=== PATIENT | female | born 1970 | race Caucasian/White ===

== ENCOUNTER 2018-03-07 07:27 | Emergency (ER) | payer BC ==
[~2018-03-07] VITALS: Ht 160 cm; Wt 89.8 kg
--- NOTE | ~2018-03-07 | EKG ---
[place], [place] ELECTROCARDIOGRAM REPORT NAME: JONNA DIAZ UNIT #: [id number] ROOM: DOCTOR: EPIPHANY DRAFT REPORT BIRTHDATE: [birth year] [facility] Test Date: 2018-03-07 Test Time: 07:54:06 Pat Name: JONNA DIAZ Department: ed Room: 6 Gender: F Pmp: EKG.[place] : 1970 Requested By: MADISYN ARRIAGA Order Number: [id number] Reading MD: Yves Kilgore MD Measurements Intervals [place] Rate: 88 P: 41 CT: 152 QRS: 12 QRSD: 106 T: 46 QT: 369 QTc: 447 Interpretive Statements Sinus rhythm Probable left atrial enlargement RSR' in V1 or V2, right VCD or RVH Electronically Signed On 03-09-2018 18:47:40 PDT by Yves Kilgore MD CM:EKGRPT:ELECTROCARDIOGRAM REPORT [id number] MADISYN ORELLANA DRAFT REPORT MADISYN ARRIAGA MD
[2018-03-07] MEDS ORDERED: ALDACTONE25 M1 PO (07:37)
[2018-03-07] MEDS ORDERED: METOPROLOL SUC100 M1 PO (07:38)
[2018-03-07] MEDS ORDERED: LEVOTHYROXINE50 MCG PO (07:38)
[2018-03-07] MEDS ORDERED: HYDRALAZINE HYD50 MG PO (07:39)
[2018-03-07] MEDS ORDERED: GLUCOPHAGE500 M1 PO (07:39)
[2018-03-07] MEDS ORDERED: BIOTIN5000 MC1 SL (07:40)
[2018-03-07] MEDS ORDERED: SIMVASTATIN20 MG PO (07:40)
[2018-03-07] MEDS ORDERED: VITAMIN D5000 UNI1 PO (07:41)
[2018-03-07] MEDS ORDERED: DUOFER 28 MG TA28 MG PO (07:41)
[2018-03-07 07:56] LABS: BASO % 0.4 % (0.0-1.0); EOS # 0.1 10*3/uL (0.0-0.4); HEMATOCRIT 36.3 % (37.0-47.0); HEMOGLOBIN 11.2 g/dl (12.0-16.0); LYMPH # 4.5 10*3/uL (1.3-4.4); LYMPH % 42.7 % (27.0-41.0); MEAN CELL VOLUME 80.7 fl (81.0-99.0); MEAN CORPUSCULAR HGB 24.9 pg (27.0-31.0); MEAN CORPUSCULAR HGB CONC 30.9 g/dl (33.0-37.0); MEAN PLATELET VOLUME 9.5 fl (9.6-12.3); MONO # 0.6 10*3/uL (0.1-1.0); MONO % 5.5 % (3.0-9.0); NEUT # 5.3 10*3/uL (2.3-7.9); NEUT % 50.1 % (47.0-73.0); PLATELET COUNT AUTOMATED 317 10*3/uL (130-400); RED CELL DISTRI WIDTH 15.9 % (0-14.5); WHITE BLOOD COUNT 10.6 10*3/uL (4.8-10.8)
[2018-03-07 08:11] LABS: BUN 17 mg/dl (7-24); CHLORIDE 102 mmol/L (98-107); CREATININE 0.97 mg/dL (0.55-1.02); SODIUM 136 mmol/L (136-145)
[2018-03-07 08:14] LABS: TROPONIN I < 0.015 ng/ml (<0.045)
[2018-03-07 09:29] VITALS: BP 116/76
[2018-04-03] MEDS ORDERED: GLUCOPHAGE1000 MG PO (15:17)
[2018-04-03] MEDS ORDERED: ATIVAN1 MG PO (15:45)
[2018-04-07] MEDS ORDERED: CATAPRES-TTS 10.1 MG T ×2 (04:31→04:32)
[2018-04-07] MEDS ORDERED: CLONIDINE HCL0.1 MG PO (07:46)
[2018-04-08] MEDS ORDERED: CATAPRES-TTS 10.1 MG T (15:53)
[2018-04-13] MEDS ORDERED: 'CLONIDINE0.1 MG PO (09:46)
[2018-04-14] MEDS ORDERED: ZOLOFT25 MG PO (18:29)
[2018-04-14] MEDS ORDERED: ATIVAN1 MG PO (19:52)
[2018-04-14] MEDS ORDERED: K-TAB20 MEQ PO (21:42)
== END 2018-03-07 09:40 | disposition home or self-care (01) ==
LOC: ED 07:27
PROVIDERS: Emergency Medicine
DX: I10 Essential (primary) hypertension (principal); E87.6 Hypokalemia; R51 Headache; Z79.899 Other long term (current) drug therapy

== ENCOUNTER 2018-03-09 03:58 | Inpatient (IN) | payer BC ==
[~2018-03-09] VITALS: Ht 157.4 cm; Wt 87.7 kg
[2018-03-09] VITALS (18 sets, daily range): BP systolic 135–209; BP diastolic 80–108
--- NOTE | ~2018-03-09 | EKG ---
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
[~2018-03-09 03:58] MED LIST: ALDACTONE25 M1 PO; BIOTIN5000 MC1 SL; DUOFER 28 MG TA28 MG PO; GLUCOPHAGE500 M1 PO; HYDRALAZINE HYD50 MG PO; LEVOTHYROXINE50 MCG PO; METOPROLOL SUC100 M1 PO; SIMVASTATIN20 MG PO; VITAMIN D5000 UNI1 PO
[2018-03-09] MEDS ORDERED: CLONIDINE HCL0.1 M1 PO (04:05)
[2018-03-09 05:16] LABS: BASO # 0.1 10*3/uL (0.0-0.1); BASO % 0.7 % (0.0-1.0); EOS # 0.1 10*3/uL (0.0-0.4); EOS % 0.8 % (1.0-4.0); HEMOGLOBIN 10.9 g/dl (12.0-16.0); LYMPH # 2.6 10*3/uL (1.3-4.4); LYMPH % 34.9 % (27.0-41.0); MEAN CELL VOLUME 81.3 fl (81.0-99.0); MEAN CORPUSCULAR HGB 24.6 pg (27.0-31.0); MEAN CORPUSCULAR HGB CONC 30.3 g/dl (33.0-37.0); MEAN PLATELET VOLUME 9.5 fl (9.6-12.3); MONO # 0.5 10*3/uL (0.1-1.0); MONO % 6.1 % (3.0-9.0); NEUT # 4.2 10*3/uL (2.3-7.9); NEUT % 57.4 % (47.0-73.0); PLATELET COUNT AUTOMATED 291 10*3/uL (130-400); RED BLOOD COUNT 4.43 10*6/uL (4.10-5.10); RED CELL DISTRI WIDTH 15.7 % (0-14.5); WHITE BLOOD COUNT 7.3 10*3/uL (4.8-10.8)
[2018-03-09 05:27] LABS: ACT PARTIAL THROMBO TIME 23.1 SECONDS (20.8-31.5)
[2018-03-09 05:35] LABS: ALBUMIN 3.8 gm/dl (3.1-4.5); ALKALINE PHOSPHATASE 69 U/L (45-117); BUN 15 mg/dl (7-24); CHLORIDE 105 mmol/L (98-107); CREATININE 0.95 mg/dL (0.55-1.02); POTASSIUM 3.3 mmol/L (3.5-5.1); SGOT/AST 45 IU/L (3-35); SGPT/ALT 57 U/L (12-78); SODIUM 139 mmol/L (136-145); TOTAL PROTEIN 8.2 gm/dL (6.4-8.2); TROPONIN I 0.015 ng/ml (<0.045)
[2018-03-10] VITALS: BP 148/96
[2018-03-10 04:00] VITALS: BP 139/91
[2018-03-10 05:12] LABS: ALBUMIN 3.9 gm/dl (3.1-4.5); ALKALINE PHOSPHATASE 67 U/L (45-117); BUN 8 mg/dl (7-24); CHLORIDE 104 mmol/L (98-107); CHOLESTEROL 208 mg/dL (<200); CREATININE 0.95 mg/dL (0.55-1.02); FREE T4 1.02 ng/dl (0.76-1.46); HDL CHOLESTEROL 44 mg/dl (40-60); LDL CHOLESTEROL 132 mg/dL (9-159); PHOSPHOROUS 4.2 mg/dL (2.5-4.9); POTASSIUM 3.8 mmol/L (3.5-5.1); SGOT/AST 52 IU/L (3-35); SGPT/ALT 66 U/L (12-78); SODIUM 138 mmol/L (136-145); TOTAL PROTEIN 8.4 gm/dL (6.4-8.2); TRIGLYCERIDES 161 mg/dl (<150); VLDL CHOLESTEROL 32 mg/dL (6-40)
[2018-03-10 06:59] LABS: VITAMIN D, 25-HYDROXY 42.1 ng/mL (30-100)
[2018-03-10 08:00] VITALS: BP 153/93
[2018-03-10 12:00] VITALS: BP 156/90
[2018-03-10 14:34] VITALS: BP 152/94
[2018-03-10] MEDS ORDERED: AMLODIPINE BESYL5 MG PO (14:42)
[2018-03-10] MEDS ORDERED: AVPAK METFORMI500 MG PO (14:42)
[2018-03-10] MEDS ORDERED: LISINOPRIL20 MG PO (14:42)
[2018-03-10] MEDS ORDERED: HYDR25T PO (14:42)
[2018-04-03] MEDS ORDERED: GLUCOPHAGE1000 MG PO (15:17)
[2018-04-03] MEDS ORDERED: ATIVAN1 MG PO (15:45)
[2018-04-07] MEDS ORDERED: CATAPRES-TTS 10.1 MG T ×2 (04:31→04:32)
[2018-04-07] MEDS ORDERED: CLONIDINE HCL0.1 MG PO (07:46)
[2018-04-08] MEDS ORDERED: CATAPRES-TTS 10.1 MG T (15:53)
[2018-04-13] MEDS ORDERED: 'CLONIDINE0.1 MG PO (09:46)
[2018-04-14] MEDS ORDERED: ZOLOFT25 MG PO (18:29)
[2018-04-14] MEDS ORDERED: ATIVAN1 MG PO (19:52)
[2018-04-14] MEDS ORDERED: K-TAB20 MEQ PO (21:42)
== END 2018-03-10 15:05 | disposition home or self-care (01) | DRG 305 ==
LOC: ED 03:58 → EDHOLD 06:08 → ICCU 06:08
PROVIDERS: Student in an Organized Health Care Education/Training Program
DX: I16.0 Hypertensive urgency (principal); E11.65 Type 2 diabetes mellitus with hyperglycemia; D63.8 Anemia in other chronic diseases classified elsewhere; E87.6 Hypokalemia; R00.0 Tachycardia, unspecified; I10 Essential (primary) hypertension; E03.9 Hypothyroidism, unspecified; E78.5 Hyperlipidemia, unspecified; R94.6 Abnormal results of thyroid function studies; E78.1 Pure hyperglyceridemia; R74.0 Nonspecific elevation of levels of transaminase and lactic acid dehydrogenase [LDH]; Z79.899 Other long term (current) drug therapy; Z79.84 Long term (current) use of oral hypoglycemic drugs; Z83.3 Family history of diabetes mellitus; Z82.49 Family history of ischemic heart disease and other diseases of the circulatory system; Z80.8 Family history of malignant neoplasm of other organs or systems; Z84.1 Family history of disorders of kidney and ureter

== ENCOUNTER 2018-03-20 16:21 | Emergency (ER) | payer BC ==
[~2018-03-20] VITALS: Ht 157.4 cm; Wt 84.4 kg
--- NOTE | ~2018-03-20 | EKG ---
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
[~2018-03-20 16:21] MED LIST changes: +AMLODIPINE BESYL5 MG PO; +AVPAK METFORMI500 MG PO; +CLONIDINE HCL0.1 M1 PO; +HYDR25T PO; +LISINOPRIL20 MG PO
[2018-03-20] MEDS ORDERED: LEXAPRO5 M1 PO (16:25)
[2018-03-20 16:51] LABS: BASO % 0.5 % (0.0-1.0); EOS # 0.2 10*3/uL (0.0-0.4); EOS % 2.6 % (1.0-4.0); HEMATOCRIT 34.2 % (37.0-47.0); HEMOGLOBIN 10.9 g/dl (12.0-16.0); LYMPH # 2.5 10*3/uL (1.3-4.4); LYMPH % 31.3 % (27.0-41.0); MEAN CELL VOLUME 80.3 fl (81.0-99.0); MEAN CORPUSCULAR HGB 25.6 pg (27.0-31.0); MEAN CORPUSCULAR HGB CONC 31.9 g/dl (33.0-37.0); MEAN PLATELET VOLUME 10.3 fl (9.6-12.3); MONO # 0.5 10*3/uL (0.1-1.0); MONO % 6.6 % (3.0-9.0); NEUT # 4.7 10*3/uL (2.3-7.9); NEUT % 58.6 % (47.0-73.0); PLATELET COUNT AUTOMATED 391 10*3/uL (130-400); RED BLOOD COUNT 4.26 10*6/uL (4.10-5.10); RED CELL DISTRI WIDTH 15.3 % (0-14.5)
[2018-03-20 17:06] LABS: ALBUMIN 4.1 gm/dl (3.1-4.5); ALKALINE PHOSPHATASE 72 U/L (45-117); BUN 14 mg/dl (7-24); CHLORIDE 104 mmol/L (98-107); POTASSIUM 3.3 mmol/L (3.5-5.1); SGOT/AST 17 IU/L (3-35); SGPT/ALT 32 U/L (12-78); SODIUM 139 mmol/L (136-145); TOTAL PROTEIN 8.4 gm/dL (6.4-8.2)
[2018-03-20 17:25] VITALS: BP 152/83
[2018-03-21] MEDS ORDERED: LISINOPRIL10 M1 PO (00:46)
[2018-03-21] MEDS ORDERED: ATIVAN1 MG PO (02:34)
[2018-03-21] MEDS ORDERED: 'CLONIDINE0.1 MG PO (02:34)
[2018-04-03] MEDS ORDERED: GLUCOPHAGE1000 MG PO (15:17)
[2018-04-03] MEDS ORDERED: ATIVAN1 MG PO (15:45)
== END 2018-03-20 17:55 | disposition home or self-care (01) ==
LOC: ED 16:21
PROVIDERS: Nurse Practitioner Family
DX: R03.0 Elevated blood-pressure reading, without diagnosis of hypertension (principal); Z79.899 Other long term (current) drug therapy

== ENCOUNTER 2018-03-21 00:41 | Emergency (ER) | payer BC ==
[~2018-03-21] VITALS: Ht 157.4 cm; Wt 84.8 kg
--- NOTE | ~2018-03-21 | EKG ---
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
[~2018-03-21 00:41] MED LIST changes: +LEXAPRO5 M1 PO
[2018-03-21] MEDS ORDERED: LISINOPRIL10 M1 PO (00:46)
[2018-03-21 01:24] LABS: BASO # 0.1 10*3/uL (0.0-0.1); BASO % 0.6 % (0.0-1.0); EOS # 0.1 10*3/uL (0.0-0.4); EOS % 1.6 % (1.0-4.0); HEMOGLOBIN 10.7 g/dl (12.0-16.0); LYMPH # 3.4 10*3/uL (1.3-4.4); LYMPH % 37.8 % (27.0-41.0); MEAN CELL VOLUME 79.4 fl (81.0-99.0); MEAN CORPUSCULAR HGB CONC 31.5 g/dl (33.0-37.0); MEAN PLATELET VOLUME 10.2 fl (9.6-12.3); MONO # 0.6 10*3/uL (0.1-1.0); MONO % 6.6 % (3.0-9.0); NEUT # 4.8 10*3/uL (2.3-7.9); NEUT % 53.2 % (47.0-73.0); PLATELET COUNT AUTOMATED 382 10*3/uL (130-400); RED BLOOD COUNT 4.28 10*6/uL (4.10-5.10); RED CELL DISTRI WIDTH 15.2 % (0-14.5); WHITE BLOOD COUNT 8.9 10*3/uL (4.8-10.8)
[2018-03-21 01:44] LABS: ALKALINE PHOSPHATASE 66 U/L (45-117); BUN 13 mg/dl (7-24); CHLORIDE 103 mmol/L (98-107); SGOT/AST 18 IU/L (3-35); SGPT/ALT 31 U/L (12-78); SODIUM 140 mmol/L (136-145); TOTAL PROTEIN 8.3 gm/dL (6.4-8.2)
[2018-03-21 01:45] LABS: TROPONIN I < 0.015 ng/ml (<0.045)
[2018-03-21 02:12] VITALS: BP 133/82
[2018-03-21] MEDS ORDERED: ATIVAN1 MG PO (02:34)
[2018-03-21] MEDS ORDERED: 'CLONIDINE0.1 MG PO (02:34)
[2018-04-03] MEDS ORDERED: GLUCOPHAGE1000 MG PO (15:17)
[2018-04-03] MEDS ORDERED: ATIVAN1 MG PO (15:45)
== END 2018-03-21 02:55 | disposition home or self-care (01) ==
LOC: ED 00:41
PROVIDERS: Emergency Medicine Emergency Medical Services
DX: I10 Essential (primary) hypertension (principal); F41.9 Anxiety disorder, unspecified; E11.65 Type 2 diabetes mellitus with hyperglycemia; E87.6 Hypokalemia; Z79.899 Other long term (current) drug therapy

== ENCOUNTER 2018-03-30 12:26 | Emergency (ER) | payer BC ==
[~2018-03-30] VITALS: Ht 157.4 cm; Wt 84.8 kg
--- NOTE | ~2018-03-30 | EKG ---
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
[~2018-03-30 12:26] MED LIST changes: +'CLONIDINE0.1 MG PO; +ATIVAN1 MG PO; +LISINOPRIL10 M1 PO
[2018-03-30 13:08] LABS: BASO % 0.3 % (0.0-1.0); EOS # 0.1 10*3/uL (0.0-0.4); EOS % 1.3 % (1.0-4.0); HEMOGLOBIN 10.4 g/dl (12.0-16.0); LYMPH # 1.9 10*3/uL (1.3-4.4); LYMPH % 31.6 % (27.0-41.0); MEAN CELL VOLUME 81.1 fl (81.0-99.0); MEAN CORPUSCULAR HGB 24.8 pg (27.0-31.0); MEAN CORPUSCULAR HGB CONC 30.6 g/dl (33.0-37.0); MEAN PLATELET VOLUME 9.9 fl (9.6-12.3); MONO # 0.4 10*3/uL (0.1-1.0); MONO % 6.4 % (3.0-9.0); NEUT # 3.7 10*3/uL (2.3-7.9); NEUT % 60.2 % (47.0-73.0); PLATELET COUNT AUTOMATED 261 10*3/uL (130-400); RED BLOOD COUNT 4.19 10*6/uL (4.10-5.10); RED CELL DISTRI WIDTH 15.9 % (0-14.5); WHITE BLOOD COUNT 6.1 10*3/uL (4.8-10.8)
[2018-03-30 13:21] LABS: ALBUMIN 3.6 gm/dl (3.1-4.5); ALKALINE PHOSPHATASE 51 U/L (45-117); BUN 8 mg/dl (7-24); CHLORIDE 108 mmol/L (98-107); POTASSIUM 3.6 mmol/L (3.5-5.1); SGOT/AST 19 IU/L (3-35); SGPT/ALT 26 U/L (12-78); SODIUM 142 mmol/L (136-145); TOTAL PROTEIN 7.4 gm/dL (6.4-8.2)
[2018-03-30 13:25] LABS: TROPONIN I < 0.015 ng/ml (<0.045)
[2018-03-30 13:25] LABS: BILIRUBIN NEGATIVE (NEGATIVE); BLOOD NEGATIVE (NEGATIVE); CLARITY CLOUDY (CLEAR); COLOR YELLOW (YELLOW); GLUCOSE NEGATIVE (NEGATIVE); KETONE NEGATIVE (NEGATIVE); LEUKO ESTERASE 1+ (NEGATIVE); NITRITE NEGATIVE (NEGATIVE); SPECIFIC GRAVITY 1.015 (1.005-1.030); UROBILINOGEN 0.2 E.U./dl (0.2-1.0)
[2018-03-30 13:33] LABS: BACTERIA 2+; EPITHELIAL CELLS 16-20; MUCOUS 2+; RBC 0-2 rbc/hpf (0-2)
[2018-03-30 15:30] VITALS: BP 157/82
[2018-04-03] MEDS ORDERED: GLUCOPHAGE1000 MG PO (15:17)
[2018-04-03] MEDS ORDERED: ATIVAN1 MG PO (15:45)
== END 2018-03-30 15:42 | disposition home or self-care (01) ==
LOC: ED 12:26
PROVIDERS: Emergency Medicine
DX: I10 Essential (primary) hypertension (principal); Z79.899 Other long term (current) drug therapy

== ENCOUNTER → 2018-07-21 | Outpatient (CLI) | payer BC ==
[~2018-07-21] MED LIST changes: +CATAPRES-TTS 10.1 MG T; +CLONIDINE HCL0.1 MG PO; +GLUCOPHAGE1000 MG PO; +K-TAB20 MEQ PO; +VITAMIN C500 M6 PO; +ZOLOFT25 MG PO
== END | disposition home or self-care (01) ==
LOC: MAMMO 16:47
DX: Z12.31 Encounter for screening mammogram for malignant neoplasm of breast (principal)

== ENCOUNTER 2018-07-24 17:04 | Inpatient (IN) | payer BC ==
[~2018-07-24] VITALS: Ht 160 cm; Wt 78.7 kg
--- NOTE | ~2018-07-24 | EKG ---
[place], [place] ELECTROCARDIOGRAM REPORT NAME: JONNA DIAZ UNIT #: [id number] ROOM: 415 DOCTOR: REYNA DRAFT REPORT BIRTHDATE: [birth year] [facility] Test Date: 2018-07-24 Test Time: 17:07:10 Pat Name: JONNA DIAZ Department: Room: 415 Gender: F Manager Pharmacy: Dalia Witt : 1970 Requested By: SUNG GOLDSMITH Order Number: [id number] Reading MD: Radha Menezes MD Measurements Intervals [place] Rate: 85 P: 40 [place]: 154 QRS: 14 QRSD: 95 T: 54 QT: 497 QTc: 591 Interpretive Statements Sinus rhythm Borderline repolarization abnormality Prolonged QT interval Compared to ECG 04/07/2018 01:31:32 Prolonged QT interval now present Right ventricular hypertrophy no longer present Electronically Signed On 07-31-2018 8:42:28 PST by Radha Menezes MD CM:EKGRPT:ELECTROCARDIOGRAM REPORT [id number] SUNG SUNSHINE DRAFT REPORT SUNG GOLDSMITH DO
--- NOTE | ~2018-07-24 | EKG ---
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: Judy Hall : 1970 Requested By: SUNG GOLDSMITH Order Number: [id number] Reading MD: Radha Menezes MD Measurements Intervals [place] Rate: 71 P: 41 [place]: 149 QRS: 13 QRSD: 93 T: 36 QT: 441 QTc: 480 Interpretive Statements Sinus rhythm Probable left atrial enlargement Borderline T abnormalities, anterior leads Baseline wander in lead(s) V1,V3 Compared to ECG 04/07/2018 01:31:32 T-wave abnormality now present Right ventricular hypertrophy no longer present Electronically Signed On 07-31-2018 8:42:52 PST by Radha Menezes MD CM:EKGRPT:ELECTROCARDIOGRAM REPORT 50 1 SUNG SUNSHINE DRAFT REPORT SUNG GOLDSMITH DO
--- NOTE | ~2018-07-24 | EKG ---
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
[~2018-07-24 17:04] MED LIST changes: -VITAMIN C500 M6 PO
[2018-07-24 17:07] VITALS: BP 166/84
[2018-07-24 17:36] LABS: BASO # 0.1 10*3/uL (0.0-0.1); BASO % 0.5 % (0.0-1.0); EOS # 0.1 10*3/uL (0.0-0.4); EOS % 1.4 % (1.0-4.0); HEMATOCRIT 38.5 % (37.0-47.0); HEMOGLOBIN 12.3 g/dl (12.0-16.0); LYMPH # 4.5 10*3/uL (1.3-4.4); LYMPH % 46.8 % (27.0-41.0); MEAN CELL VOLUME 80.7 fl (81.0-99.0); MEAN CORPUSCULAR HGB 25.8 pg (27.0-31.0); MEAN CORPUSCULAR HGB CONC 31.9 g/dl (33.0-37.0); MEAN PLATELET VOLUME 9.9 fl (9.6-12.3); MONO # 0.5 10*3/uL (0.1-1.0); MONO % 5.6 % (3.0-9.0); NEUT # 4.4 10*3/uL (2.3-7.9); NEUT % 45.5 % (47.0-73.0); PLATELET COUNT AUTOMATED 287 10*3/uL (130-400); RED BLOOD COUNT 4.77 10*6/uL (4.10-5.10); RED CELL DISTRI WIDTH 15.8 % (0-14.5); WHITE BLOOD COUNT 9.6 10*3/uL (4.8-10.8)
[2018-07-24 17:48] LABS: ACT PARTIAL THROMBO TIME 24.8 SECONDS (20.8-31.5)
[2018-07-24 18:00] LABS: ALBUMIN 4.1 gm/dl (3.1-4.5); ALKALINE PHOSPHATASE 66 U/L (45-117); BUN 8 mg/dl (7-24); CHLORIDE 107 mmol/L (98-107); CREATININE 0.71 mg/dL (0.55-1.02); POTASSIUM 3.4 mmol/L (3.5-5.1); SGOT/AST 13 IU/L (3-35); SGPT/ALT 21 U/L (12-78); SODIUM 141 mmol/L (136-145); TOTAL PROTEIN 8.3 gm/dL (6.4-8.2)
[2018-07-24 18:00] LABS: LIPASE 196 U/L (73-393)
[2018-07-24 18:04] LABS: TROPONIN I < 0.015 ng/ml (<0.045)
[2018-07-24 18:04] LABS: BETA-HCG, QUANT < 1.0 mIU/mL (1-3)
[2018-07-24 19:40] VITALS: BP 162/86
[2018-07-24] MEDS ORDERED: 'CLONIDINE0.1 MG PO (20:06)
[2018-07-24] MEDS ORDERED: VITAMIN C500 M6 PO (20:06)
[2018-07-25] VITALS: BP 157/98
[2018-07-25 04:00] VITALS: BP 131/79
[2018-07-25 06:28] LABS: BUN 7 mg/dl (7-24); CHLORIDE 106 mmol/L (98-107); CREATININE 0.67 mg/dL (0.55-1.02); FREE T4 1.01 ng/dl (0.76-1.46); PHOSPHOROUS 4.2 mg/dL (2.5-4.9); POTASSIUM 3.8 mmol/L (3.5-5.1); SODIUM 141 mmol/L (136-145)
[2018-07-25 08:00] VITALS: BP 170/102
[2018-07-25 12:00] VITALS: BP 153/83
== END 2018-07-25 14:09 | disposition home or self-care (01) | DRG 914 ==
LOC: ED 17:04 → EDHOLD 18:22 → 4E 18:45
PROVIDERS: Emergency Medicine; Student in an Organized Health Care Education/Training Program
DX: S29.9XXA Unspecified injury of thorax, initial encounter (principal); E87.6 Hypokalemia; D50.9 Iron deficiency anemia, unspecified; E03.9 Hypothyroidism, unspecified; I10 Essential (primary) hypertension; F41.9 Anxiety disorder, unspecified; E66.9 Obesity, unspecified; F32.9 Major depressive disorder, single episode, unspecified; E11.9 Type 2 diabetes mellitus without complications; E78.5 Hyperlipidemia, unspecified; E55.9 Vitamin D deficiency, unspecified; X58.XXXA Exposure to other specified factors, initial encounter; Y93.89 Activity, other specified; Y92.89 Other specified places as the place of occurrence of the external cause; Y99.8 Other external cause status; Z82.49 Family history of ischemic heart disease and other diseases of the circulatory system; Z83.3 Family history of diabetes mellitus; Z84.89 Family history of other specified conditions; Z80.7 Family history of other malignant neoplasms of lymphoid, hematopoietic and related tissues; Z79.899 Other long term (current) drug therapy; Z68.30 Body mass index [BMI] 30.0-30.9, adult

== ENCOUNTER → 2025-05-16 | Outpatient (CLI) | payer OTHER ==
[~2025-05-16] MED LIST changes: +VITAMIN C500 M6 PO
[2025-05-16 12:36] LABS: BILIRUBIN Negative (Negative); BLOOD Negative (Negative); CLARITY Clear (Clear); COLOR Yellow (Yellow); KETONE Negative (Negative); LEUKO ESTERASE Negative (Negative); NITRITE Negative (Negative); PH 6.5 (4.5-8.0); SPECIFIC GRAVITY 1.010 (1.001-1.030); UROBILINOGEN 1.0 E.U./dl (0.0-1.0)
[2025-05-16 13:06] LABS: EPITHELIAL CELLS 0-2; RBC 0-2 rbc/hpf (0-2); WBC 0-2 wbc/hpf (0-5)
[2025-05-16 13:13] LABS: BUN 9 mg/dl (9-23)
== END | disposition home or self-care (01) ==
LOC: LAB 12:15
PROVIDERS: ATTEND Internal Medicine Nephrology
DX: N17.9 Acute kidney failure, unspecified (principal)